=== PATIENT | female | born 1970 | race Caucasian/White ===

== ENCOUNTER 2018-03-26 16:17 | Emergency (ER) | payer OTHER ==
[~2018-03-26] VITALS: Ht 165.1 cm; Wt 91.2 kg
[~2018-03-26 16:17] MED LIST: BENICAR; DARVOCET-N 1001 EACH PO; DIFLUCAN150 MG PO; FLEXERIL PO; KETOCONAZOLE15 GM TOP; LISINOPRIL20 MG; MOBIC7.5 M1 PO; MULTIVITAMINS1 EAC7; NORCO 5-325 TA1 EACH PO; NORFLEX100 MG PO; PHENERMINE; PHENTERMINE HCL15 MG; ZOFRAN4 MG PO
[2018-03-26] MEDS ORDERED: LIPITOR 20 MG T20 M1 PO (16:46)
[2018-03-26] MEDS ORDERED: CHILDREN'S ASPI81 M1 PO (16:46)
[2018-03-26] MEDS ORDERED: PROBIOTIC1 EAC1 PO (16:46)
[2018-03-26] MEDS ORDERED: COUMADIN 2.5MG2.5 M1 PO (16:46)
[2018-03-26] MEDS ORDERED: KEFLEX500 M1 PO (17:34)
[2018-03-26 17:46] VITALS: BP 133/80
== END 2018-03-26 17:47 | disposition home or self-care (01) ==
LOC: M.ERS 16:17
DX: S10.86XA Insect bite of other specified part of neck, initial encounter (principal); L08.9 Local infection of the skin and subcutaneous tissue, unspecified; I10 Essential (primary) hypertension; F17.210 Nicotine dependence, cigarettes, uncomplicated; W57.XXXA Bitten or stung by nonvenomous insect and other nonvenomous arthropods, initial encounter; Y93.89 Activity, other specified; Y92.89 Other specified places as the place of occurrence of the external cause; Y99.8 Other external cause status

== ENCOUNTER 2021-03-13 15:24 | Emergency (ER) | payer OTHER ==
[~2021-03-13] VITALS: Ht 165.1 cm; Wt 93.4 kg
[~2021-03-13 15:24] MED LIST changes: +CHILDREN'S ASPI81 M1 PO; +COUMADIN 2.5MG2.5 M1 PO; +KEFLEX500 M1 PO; +LIPITOR 20 MG T20 M1 PO; +PROBIOTIC1 EAC1 PO
[2021-03-13] MEDS ORDERED: NASONEX17 GM NASAL (15:53)
[2021-03-13] MEDS ORDERED: AUGMENTIN 875-1 EACH PO (15:53)
[2021-03-13] MEDS ORDERED: TRAMADOL 50 MG50 MG PO (15:53)
[2021-03-13] MEDS ORDERED: PREDNISONE 10 M10 M1 PO (15:53)
[2021-03-13 16:14] VITALS: BP 150/91
== END 2021-03-13 16:15 | disposition home or self-care (01) ==
LOC: M.ERS 15:24
DX: J32.2 Chronic ethmoidal sinusitis (principal); J32.1 Chronic frontal sinusitis; I10 Essential (primary) hypertension; F17.210 Nicotine dependence, cigarettes, uncomplicated; Z98.890 Other specified postprocedural states